=== PATIENT | female | born 1965 | race Caucasian/White ===

== ENCOUNTER → 2017-01-26 | Outpatient (CLI) | payer OTHER ==
[~2017-01-26] MED LIST: LEVOTHYROXIN0.025 MG
== END ==
LOC: CAT 07:39
DX: Z13.6 Encounter for screening for cardiovascular disorders (principal)

== ENCOUNTER → 2017-07-29 | Outpatient (CLI) | payer BC, OTHER ==
[~2017-07-29] VITALS: Ht 170.2 cm; Wt 80.3 kg
[~2017-07-29] MED LIST changes: +ALBUTEROL2.5 MG/0.1 INH; +SINGULAIR 10 MG10 M1 PO; +SYNTHROID25 MCG PO; +ZYRTEC10 M5 PO
--- NOTE | ~2017-07-29 | P ---
[facility] [place] [address] [place] [address] PROCEDURE REPORT Name: KODI LAI MALVIN Room #: REG AUBREY Murphy#: [id number] Admission: 07/29/17 Attend Phys: Abel Hernandez Discharge: Date of : 65 Report #: [id number] THIS REPORT FOR: //name// CC: Abel Medrano MD DATE OF SERVICE: 07/29/2017 PROCEDURE PERFORMED: Colonoscopy with biopsies. HISTORY OF PRESENT ILLNESS: The patient is a 52-year-old female with intermittent diarrhea and abdominal pain. She reportedly had a CT scan showing colitis in May 2016 when she was evaluated in the Emergency Room. She was treated with antibiotics at that time. She denies any blood in her stools. No previous history of colonoscopy. She has a history with a history of Crohn's disease. DESCRIPTION OF PROCEDURE: The risks and benefits of the procedure were explained to the patient, those risks including but not limited to bleeding, perforation and the risk of sedation. She understood these risks and gave informed consent. Sedation was given using propofol per anesthesia. Next, a digital rectal exam was initially performed, which was normal. Next, using a standard [employer] colonoscope, the scope was placed in the patient's anus and advanced under direct vision to the cecum. The overall prep was excellent. The cecum and ileocecal valve were normal in appearance. The ascending and transverse colon were normal. In the descending colon, there was a 5-mm sessile polyp. This was removed with cold forceps, otherwise normal. The sigmoid colon was normal. The rectal mucosa was normal. Random biopsies were obtained today to rule out the possibility of microscopic colitis due to her history of diarrhea. On retroflexion, no abnormalities were noted. Small external hemorrhoids were noted. No evidence of bleeding. Scope was then withdrawn, and the procedure was terminated. The patient tolerated the procedure well. IMPRESSION: 1. Small colonic polyp. 2. Small external hemorrhoids. 3. Otherwise, normal colonoscopy. RECOMMENDATIONS: 1. Await biopsy results. 2. Recommend a trial of probiotics. 3. If polyp is hyperplastic, repeat in 10 years; if adenomatous polyp, repeat in [address] [address] PROCEDURE REPORT Name: KODI LAI [facility] Room #: REG [facility].#: [id number] Admission: 07/29/17 Attend Phys: Abel Hernandez Discharge: Date of : 65 Report #: [id number] Thank you for allowing me to participate in her care. <ELECTRONICALLY SIGNED> By: Abel Duong MD 07/30/17 1022 [id number] [id number] Abel Duong MD /nt
--- NOTE | ~2017-07-29 | S ---
[facility] [place] [address] SURGICAL PATH RPT PROCEDURE Name: CARMITA ROSARIO MALVIN Room #: REG AUBREY Gautam.#: [id number] Admission: 07/29/17 Date of : 65 Discharge: Report #: [id number] Path Case #: [id number] PATHOLOGY REPORT COLLECTION DATE: 07/29/2017 RECEIVED DATE: 07/29/2017 SUBMITTING PHYS: Dr. Abel Duong OTHER PHYS: SPECIMEN(S) RECEIVED: A.Gastric polyp B.Random colon C.Polyp at descending colon * * * * * * * * * * * * FINAL DIAGNOSIS: A. "Gastric polyp", biopsy: - Gastric fundic gland polyp. B. "Random colon", biopsy: - Colonic mucosa with minimal histologic alteration; no evidence of active, lymphocytic or collagenous colitis. C. "Polyp at descending colon", biopsy: - Tubular adenoma; no high-grade dysplasia. (CLW:conrad; 08/01/2017) PATHOLOGIST: Prisca Caputo M.D. REPORT ELECTRONICALLY SIGNED BY: Prisca Caputo M.D. DATE/TIME: 08/01/2017 22:12 * * * * * * * * * * * * GROSS PATHOLOGY: A. Received in formalin labeled "Carmita Rosario, gastric polyp," are 2 segments of kaye soft tissue measuring 0.8 x 0.3 x 0.3 cm in aggregate dimensions and ranging from 0.4 to 0.4 cm in maximum dimension. The specimen is submitted entirely in cassette A1. B. Received in formalin labeled "Vielka Rosario, random colon BX," are 2 segments of kaye soft tissue measuring 1.2 x 0.3 x 0.4 cm in aggregate dimensions and ranging from 0.4 to 0.7 cm in maximum dimension. The specimen is submitted entirely in cassette B1. C. Received in formalin labeled "Vielka Rosario, polyp at descending colon," are 2 segments of kaye soft tissue measuring 1.0 x 0.3 x 0.3 cm in aggregate dimensions and ranging from 0.3 to 0.4 cm in maximum dimension. The specimen is submitted entirely in cassette C1. (TSD; 07/29/2017) [facility] [place] [address] SURGICAL PATH RPT PROCEDURE Name: CARMITA ROSARIO MALVIN Room #: REG [facility].#: [id number] Admission: 07/29/17 Date of : 65 Discharge: Report #: [id number] Path Case #: [id number] CLINICAL HISTORY: GERD INITIAL CPT CODE(S): A; 03728 B; 55487 C; 32024 Professional services performed by [facility] at [facility] [address] [place] [address] Technical services performed by [facility] at [address] [place] [address], [facility] [address] [address]. [facility] [address] [place] [address] PHONE: [phone] DIRECTOR: Edwin Lei M.D. * * * END OF REPORT * * *
--- NOTE | ~2017-07-29 | P ---
[facility] [place] [address] PROCEDURE REPORT Name: KODI LAI MALVIN Room #: REG Lexi Murphy#: [id number] Admission: 07/29/17 Attend Phys: Abel Hernandez Discharge: Date of : 65 Report #: [id number] THIS REPORT FOR: //name// CC: Abel Medrano MD DATE OF SERVICE: 07/29/2017 PROCEDURE PERFORMED: Upper endoscopy with biopsies and esophageal dilation. HISTORY OF PRESENT ILLNESS: The patient is a 52-year-old female who was recently seen in the office for history of reflux and dysphagia and also possible history of colitis. She has abdominal pain and intermittent diarrhea. CT last year reportedly showed colitis. She denies any blood in her stools. No previous history of endoscopy. Plan is for EGD and colonoscopy today. DESCRIPTION OF PROCEDURE: The risks and benefits of the procedure were explained to the patient, those risks including but not limited to bleeding, perforation and the risk of sedation. She understood these risks and gave informed consent. Sedation was given using propofol per anesthesia. Next, using a standard [employer] upper endoscope, the scope was placed in the patient's mouth and advanced under direct vision through the esophagus, stomach and into the second portion of the duodenum. The upper and mid esophagus was normal in appearance. In the distal esophagus, there was evidence of grade A erosive esophagitis, and a mild Schatzki's ring was noted. The scope passed through this area without difficulty. Upon entering the stomach, a small hiatal hernia was noted. Overall, the gastric mucosa was normal other than a few small gastric polyps. Biopsies were obtained. The pylorus was normal and patent. The duodenal bulb, first and second portion were all normal. The scope was then brought back up into the patient's stomach, and a Savary guidewire was inserted through the scope. The scope was then withdrawn, leaving the guidewire in place. Next, a 48-[place] Savary dilation of the esophagus was then performed without difficulty. The dilator and wire were removed. The scope was reintroduced into the patient's stomach. There was no evidence of mucosal tear after dilation. The scope was then withdrawn, and the procedure was terminated. The patient tolerated the procedure well. IMPRESSION: 1. Grade A erosive esophagitis. 2. Small hiatal hernia. 3. Mild Schatzki's ring. 4. A few small gastric polyps. RECOMMENDATIONS: 1. Await biopsy results. [facility] [address] [place] [address] PROCEDURE REPORT Name: KODI LAI [facility] Room #: REG AUBREY Florez.#: [id number] Admission: 07/29/17 Attend Phys: Abel Hernandez Discharge: Date of : 65 Report #: [id number] 2. Recommend daily PPI therapy. 3. Observe status post dilation. 4. We will proceed with colonoscopy next today. Thank you for allowing me to participate in her care. <ELECTRONICALLY SIGNED> By: Abel Duong MD 07/30/17 1022 [id number] 0321 Abel Duong MD /nt
== END | disposition home or self-care (01) ==
LOC: GI 07:26
DX: D12.4 Benign neoplasm of descending colon (principal); K31.7 Polyp of stomach and duodenum; K22.2 Esophageal obstruction; K22.10 Ulcer of esophagus without bleeding; K21.9 Gastro-esophageal reflux disease without esophagitis; K44.9 Diaphragmatic hernia without obstruction or gangrene; K64.8 Other hemorrhoids; R13.10 Dysphagia, unspecified; J45.909 Unspecified asthma, uncomplicated; E03.9 Hypothyroidism, unspecified; Z90.49 Acquired absence of other specified parts of digestive tract; Z87.19 Personal history of other diseases of the digestive system; Z98.890 Other specified postprocedural states; Z86.711 Personal history of pulmonary embolism; Z88.0 Allergy status to penicillin; Z88.2 Allergy status to sulfonamides; Z88.1 Allergy status to other antibiotic agents
CPT/HCPCS: 62110; 62900

== ENCOUNTER → 2017-12-19 | Outpatient (CLI) | payer BC, OTHER | LOC: RAD 09:01 | DX: R10.11 Right upper quadrant pain (principal); R11.0 Nausea; R10.12 Left upper quadrant pain; I87.8 Other specified disorders of veins; Z90.49 Acquired absence of other specified parts of digestive tract ==